=== PATIENT | male | born 1965 | race Caucasian/White ===

== ENCOUNTER 2019-05-29 10:28 | Observation (INO) | payer BC ==
[2019-05-29] MEDS ORDERED: Sodium Chloride 0.9% 1,000 ML IV ONE ×3 (10:31→14:30)
[2019-05-29] MEDS ORDERED: Ondansetron 4 MG/2 ML SDV IVPUSH ONE (10:33)
[2019-05-29 11:18] LABS: CHLORIDE,CL 100 mmol/L (98-107); SODIUM,NA 137 mmol/L (136-145)
[2019-05-29] MEDS ORDERED: Pantoprazole 40 MG in Sodium Chloride 0.9% 100 ML IV ONE (12:16)
[2019-05-29] MEDS ORDERED: Ondansetron 4 MG/2 ML SDV IVPUSH PRN (12:16)
[2019-05-29] MEDS ORDERED: Acetaminophen 325 MG Tab PO PRN (12:16)
[2019-05-29] MEDS ORDERED: Potassium Chloride 20 MEQ Tab.ER PO ONE ×3 (12:20→18:00)
[2019-05-29] MEDS ORDERED: Ketorolac 30 MG/ML SDV IVPUSH PRN (12:25)
[2019-05-29] MEDS ORDERED: Pantoprazole 40 MG in Sodium Chloride 0.9% 100 ML IVPUSH ONE (12:28)
--- NOTE | 2019-05-29 12:31 | EDM.PDOC ---
ED HPI GENERAL MEDICAL PROBLEM - General Chief Complaint: General Stated Complaint: nausea/vomiting, sinus congestion Time Seen by Provider: 05/29/19 11:00 Source of Information: Reports: Patient History Limitations: Reports: No Limitations - History of Present Illness INITIAL COMMENTS - FREE TEXT/NARRATIVE: Patient comes to ER with multiple complaints, including headache/body aches/ cough and congestion/emesis that has been present for 4 days. No specific fevers. Feels weaker overall. Exposed to sick coworkers at [employer]. headache Pain Score (Numeric/FACES): 8 - Related Data Allergies Allergy/AdvReac Type Severity Reaction Status Date / Time No Known Allergies Allergy Verified 05/29/19 11:02 Home Meds: Home Meds diphenhydrAMINE [Benadryl] 2 cap PO Q4HR PRN 05/29/19 [History] Past Medical History HEENT History: Reports: Other (See Below) Other HEENT History: seasonal allergies. wears glasses Other Musculoskeletal History: right wrist surgery Social & Family History - Tobacco Use Smoking Status *Q: Former Smoker Used Tobacco, but Quit: Yes Month/Year Tobacco Last Used: quit in 1996 - Caffeine Use Caffeine Use: Reports: None - Alcohol Use Alcohol Use History: No - Recreational Drug Use Recreational Drug Use: No Drug Use in Last 12 Months: No - Living Situation & Occupation Living situation: Reports: Single, Alone Occupation: Employed ED ROS GENERAL - Review of Systems Review Of Systems: See Below Constitutional: Reports: Chills, Malaise, Weakness, Fatigue, Decreased Appetite. Denies: Night Sweats, Diaphoresis HEENT: Reports: Ear Pain, Rhinitis, Sinus Problem. Denies: Dental Pain, Eye Discharge, Eye Pain, Hearing Loss, Throat Pain, Throat Swelling, Vertigo, Vision Change Respiratory: Reports: Cough, Sputum. Denies: Shortness of Breath, Wheezing, Pleuritic Chest Pain, Hemoptysis Cardiovascular: Reports: No Symptoms GI/Abdominal: Reports: Decreased Appetite, Nausea, Vomiting. Denies: Abdominal Pain, Constipation, Diarrhea, Difficulty Swallowing, Distension, Hematemesis, Hematochezia : Reports: No Symptoms Musculoskeletal: Reports: Other (diffuse body aches) Skin: Reports: No Symptoms Neurological: Reports: Headache. Denies: Confusion, Dizziness, Numbness, Paresthesia, Seizure, Syncope, Trouble Speaking, Difficulty Walking, Weakness, Change in Speech, Gait Disturbance Psychiatric: Reports: No Symptoms Hematologic/Lymphatic: Reports: No Symptoms Immunologic: Reports: No Symptoms ED EXAM, GENERAL - Physical Exam Exam: See Below Exam Limited By: No Limitations General Appearance: Alert, WD/WN, No Apparent Distress Eye Exam: Bilateral Eye: EOMI, PERRL Ears: Normal External Exam, Normal Canal, Hearing Grossly Normal, Normal TMs Nose: Normal Inspection Throat/Mouth: Normal Gums, Normal Oropharynx, Normal Voice, No Airway Compromise Head: Atraumatic, Normocephalic Neck: Normal Inspection, Supple, Non-Tender, Full Range of Motion. No: Lymphadenopathy (L), Lymphadenopathy (R) Respiratory/Chest: No Respiratory Distress, Lungs Clear, Normal Breath Sounds, No Accessory Muscle Use, Chest Non-Tender Cardiovascular: No Murmur, Tachycardia Peripheral Pulses: 2+: Radial (L), Radial (R) GI/Abdominal: Soft, Non-Tender, No Distention, Abnormal Bowel Sounds (decreased throughout) (Male) Exam: Deferred Rectal (Males) Exam: Deferred Back Exam: Normal Inspection Extremities: Normal Range of Motion, Non-Tender, No Pedal Edema, Slow Capillary Refill (4-5 seconds on upper arm) Neurological: Alert, Oriented, Normal Cognition, Normal Gait, No Motor/Sensory Deficits Psychiatric: Normal Affect, Normal Mood Skin Exam: Warm, Dry, Intact, Pallor Course - Vital Signs Last Recorded V/S: Last Vital Signs Temp 37.2 C 05/29/19 10:36 Pulse 96 05/29/19 10:59 Resp 20 05/29/19 10:59 BP 131/84 05/29/19 10:59 Pulse Ox 100 05/29/19 10:59 - Orders/Labs/Meds Orders: Active Orders 24 hr Category Date Time Status Patient Status [ADT] Routine ADT 05/29/19 12:16 Active Antiembolic Devices [RC] PER UNIT ROUTINE Care 05/29/19 12:18 Active Intake and Output [RC] QSHIFT Care 05/29/19 12:18 Active May Shower [RC] ASDIRECTED Care 05/29/19 12:16 Active Oxygen Therapy [RC] PRN Care 05/29/19 12:16 Active Up ad Aleixa [RC] ASDIRECTED Care 05/29/19 12:16 Active VTE/DVT Education [RC] PER UNIT ROUTINE Care 05/29/19 12:16 Active Vital Signs [RC] Q6HR Care 05/29/19 12:16 Active Full Liquid Diet [DIET] Diet 05/29/19 Lunch Active Chest 2V [CR] Stat Exams 05/29/19 10:33 Taken CBC WITH AUTO DIFF [HEME] AM Lab 05/30/19 05:15 Ordered COMPREHENSIVE METABOLIC PN,CMP [CHEM] AM Lab 05/30/19 05:11 Ordered MAGNESIUM [CHEM] AM Lab 05/30/19 05:11 Ordered UA W/MICROSCOPIC [URIN] Stat Lab 05/29/19 10:31 Ordered Acetaminophen [Tylenol] Med 05/29/19 12:16 Ordered 650 mg PO Q4H PRN Ketorolac [Toradol] Med 05/29/19 12:25 Ordered 30 mg IVPUSH Q6H PRN Magnesium Sulfate/D5W [Magnesium Sulfate in D5W 100 Med 05/29/19 13:30 Ordered Premix] 1 gm Premix Bag 1 bag IV ONETIME Magnesium Sulfate/D5W [Magnesium Sulfate in D5W 100 Med 05/29/19 20:00 Ordered Premix] 1 gm Premix Bag 1 bag IV ONETIME Ondansetron [Zofran] Med 05/29/19 12:16 Ordered 4 mg IVPUSH Q6H PRN Pantoprazole [ProTONIX IV] 40 mg Med 05/29/19 12:16 Ordered Sodium Chloride 0.9% [Normal Saline] 100 ml IV ONETIME Potassium Chloride [Klor-Con M20] Med 05/29/19 18:00 Once 20 meq PO ONETIME ONE Potassium Chloride [Klor-Con M20] Med 05/29/19 12:20 Once 40 meq PO ONETIME ONE Potassium Chloride [Klor-Con M20] Med 05/29/19 15:00 Once 40 meq PO ONETIME ONE Sodium Chloride 0.9% [Normal Saline] 1,000 ml Med 05/29/19 12:19 Ordered IV .BOLUS Sodium Chloride 0.9% [Normal Saline] 1,000 ml Med 05/29/19 14:30 Ordered IV .BOLUS Sodium Chloride 0.9% [Normal Saline] 1,000 ml Med 05/29/19 18:30 Ordered IV ASDIRECTED Sodium Chloride 0.9% [Saline Flush] Med 05/29/19 10:31 Active 10 ml FLUSH ASDIRECTED PRN Antiembolic Hose [OM.PC] Per Unit Routine Oth 05/29/19 12:18 Ordered Saline Lock Insert [OM.PC] Routine Oth 05/29/19 10:31 Ordered Resuscitation Status Routine Resus Stat 05/29/19 12:16 Ordered Medication Orders Acetaminophen (Tylenol) 650 mg PO Q4H PRN PRN Reason: Pain (Mild 1-3)/fever Pantoprazole Sodium 40 mg/ (Sodium Chloride) 100 mls @ 200 mls/hr IV ONETIME ONE Stop: 05/29/19 12:45 Sodium Chloride (Normal Saline) 1,000 mls @ 999 mls/hr IV .BOLUS ONE Stop: 05/29/19 13:19 Magnesium Sulfate/Dextrose 1 (gm/ Premix) 100 mls @ 100 mls/hr IV ONETIME ONE Stop: 05/29/19 14:29 Magnesium Sulfate/Dextrose 1 (gm/ Premix) 100 mls @ 100 mls/hr IV ONETIME ONE Stop: 05/29/19 20:59 Sodium Chloride (Normal Saline) 1,000 mls @ 250 mls/hr IV .BOLUS ONE Stop: 05/29/19 18:29 Sodium Chloride (Normal Saline) 1,000 mls @ 150 mls/hr IV ASDIRECTED KIM Ketorolac Tromethamine (Toradol) 30 mg IVPUSH Q6H PRN PRN Reason: Pain Stop: 06/03/19 12:26 Ondansetron HCl (Zofran) 4 mg IVPUSH Q6H PRN PRN Reason: Nausea/Vomiting Potassium Chloride (Klor-Con M20) 40 meq PO ONETIME ONE Stop: 05/29/19 12:21 Potassium Chloride (Klor-Con M20) 40 meq PO ONETIME ONE Stop: 05/29/19 15:01 Potassium Chloride (Klor-Con M20) 20 meq PO ONETIME ONE Stop: 05/29/19 18:01 Sodium Chloride (Saline Flush) 10 ml FLUSH ASDIRECTED PRN PRN Reason: Keep Vein Open Labs: Laboratory Tests 05/29/19 05/29/19 05/29/19 Range/Units 10:45 10:45 10:45 WBC 3.5 L (4.0-10.2) K/uL RBC 4.98 (4.33-5.41) M/uL Hgb 15.7 (13.1-16.8) g/dL Hct 44.9 (39.0-49.0) % MCV 90.2 (84.0-98.0) fL MCH 31.5 (28.2-33.3) pg MCHC 35.0 (31.7-36.0) g/dL RDW 12.8 (11.2-14.1) % Plt Count 110 L (150-350) K/uL Neut % (Auto) 70.8 (45.0-80.0) % Lymph % (Auto) 17.2 (10.0-50.0) % Hubbard % (Auto) 11.7 (2.0-14.0) % Eos % (Auto) 0.0 (0.0-5.0) % Baso % (Auto) 0.3 (0.0-2.0) % Neut # (Auto) 2.47 (1.40-7.00) K/uL Lymph # (Auto) 0.60 (0.50-3.50) K/uL [place] # (Auto) 0.41 (0.00-1.00) K/uL Eos # (Auto) 0.00 (0.00-0.50) K/uL Baso # (Auto) 0.01 (0.00-0.20) K/uL Sodium 137 (136-145) mmol/L Potassium 3.1 L (3.5-5.1) mmol/L Chloride 100 (98-107) mmol/L Carbon Dioxide 23.2 (21.0-32.0) mmol/L BUN 15 (7-18) mg/dL Creatinine 0.88 (0.51-1.17) mg/dL Est Cr Clr Drug Dosing 106.55 mL/min Estimated GFR (MDRD) > 60 mL/min Glucose 154 H (74-106) mg/dL Lactic Acid 1.5 (0.4-2.0) mmol/L Calcium 8.3 L (8.5-10.1) mg/dL Magnesium 1.7 L (1.8-2.4) mg/dL Total Bilirubin 0.9 (0.2-1.0) mg/dL AST 40 H (15-37) U/L ALT 75 (12-78) U/L Alkaline Phosphatase 69 (46-116) IU/L Total Protein 7.0 (6.4-8.2) g/dL Albumin 3.9 (3.4-5.0) g/dL Meds: Medications Generic Name Dose Route Start Last Admin Trade Name Freq PRN Reason Stop Dose Admin Acetaminophen 650 mg 05/29/19 12:16 Tylenol PO Q4H PRN Pain (Mild 1-3)/fever Pantoprazole Sodium 40 mg/ 100 mls @ 200 mls/hr 05/29/19 12:16 Sodium Chloride IV 05/29/19 12:45 ONETIME ONE Sodium Chloride 1,000 mls @ 999 mls/hr 05/29/19 12:19 Normal Saline IV 05/29/19 13:19 .BOLUS ONE Magnesium Sulfate/Dextrose 1 100 mls @ 100 mls/hr 05/29/19 13:30 gm/ Premix IV 05/29/19 14:29 ONETIME ONE Magnesium Sulfate/Dextrose 1 100 mls @ 100 mls/hr 05/29/19 20:00 gm/ Premix IV 05/29/19 20:59 ONETIME ONE Sodium Chloride 1,000 mls @ 250 mls/hr 05/29/19 14:30 Normal Saline IV 05/29/19 18:29 .BOLUS ONE Sodium Chloride 1,000 mls @ 150 mls/hr 05/29/19 18:30 Normal Saline IV ASDIRECTED KIM Ketorolac Tromethamine 30 mg 05/29/19 12:25 Toradol IVPUSH 06/03/19 12:26 Q6H PRN Pain Ondansetron HCl 4 mg 05/29/19 12:16 Zofran IVPUSH Q6H PRN Nausea/Vomiting Potassium Chloride 40 meq 05/29/19 12:20 Klor-Con M20 PO 05/29/19 12:21 ONETIME ONE Potassium Chloride 40 meq 05/29/19 15:00 Klor-Con M20 PO 05/29/19 15:01 ONETIME ONE Potassium Chloride 20 meq 05/29/19 18:00 Klor-Con M20 PO 05/29/19 18:01 ONETIME ONE Sodium Chloride 10 ml 05/29/19 10:31 Saline Flush FLUSH ASDIRECTED PRN Keep Vein Open Discontinued Medications Generic Name Dose Route Start Last Admin Trade Name Solitario PRN Reason Stop Dose Admin Sodium Chloride 1,000 mls @ 999 mls/hr 05/29/19 10:31 05/29/19 10:58 Normal Saline IV 05/29/19 11:31 999 mls/hr .BOLUS ONE Administration Ondansetron HCl 4 mg 05/29/19 10:33 05/29/19 10:57 Zofran IVPUSH 05/29/19 10:34 4 mg ONETIME ONE Administration - Re-Assessments/Exams Free Text/Narrative Re-Assessment/Exam: Influenza B positive. Delayed cap refill, low Mg/K. Admit for rehydration and correction of potassium and Mg. Departure - Departure Time of Disposition: 12:00 Disposition: Refer to Observation Clinical Impression: Influenza B, Dehydration, Hypokalemia, Hypomagnesemia - Discharge Information *PRESCRIPTION DRUG MONITORING PROGRAM REVIEWED*: Not Applicable *COPY OF PRESCRIPTION DRUG MONITORING REPORT IN PATIENT DONA: Not Applicable Referrals: PCP,None [Primary Care Provider] - Forms: ED Department Discharge Sepsis Event Note - Evaluation Sepsis Screening Result: No Definite Risk - Focused Exam Vital Signs: Vital Signs Temp Pulse Resp BP Pulse Ox 05/29/19 10:59 96 20 131/84 100 05/29/19 10:52 96 20 145/85 H 98 05/29/19 10:36 37.2 C 95 20 138/83 97 05/29/19 10:31 37.2 C 100 20 156/82 H 100 Date Exam was Performed: 05/29/19 Time Exam was Performed: 12:26 - Problem List & Annotations (1) Influenza B SNOMED Code(s): 56586587 Code(s): J10.1 - FLU DUE TO OTH IDENT INFLUENZA VIRUS W OTH RESP MANIFEST Status: Acute Priority: High Current Visit: Yes Annotation/Comment:: Influenza B positive. (2) Dehydration SNOMED Code(s): 86540863 Code(s): E86.0 - DEHYDRATION Status: Acute Priority: High Current Visit : Yes Annotation/Comment:: Delayed cap refill/significant dehydration by exam. Admit for IV fluids/nausea control (3) Hypokalemia SNOMED Code(s): 90795886 Code(s): E87.6 - HYPOKALEMIA Status: Acute Priority: Medium Current Visit: Yes Annotation/Comment:: Oral K ordered. Recheck level in AM (4) Hypomagnesemia SNOMED Code(s): 294465959 Code(s): E83.42 - HYPOMAGNESEMIA Status: Acute Priority: Medium Current Visit: Yes Annotation/Comment:: IV supplementation ordered. Recheck level in AM. (5) Osteoarthritis SNOMED Code(s): 829973637 Code(s): M19.90 - UNSPECIFIED OSTEOARTHRITIS, UNSPECIFIED SITE Status: Chronic Priority: Low Current Visit: No Annotation/Comment:: Stable by history Qualifiers: Osteoarthritis location: spine Spinal region: lumbar Spinal osteoarthritis complication: unspecified spinal osteoarthritis Qualified Code( s): M47.816 - Spondylosis without myelopathy or radiculopathy, lumbar region (6) Peptic reflux disease SNOMED Code(s): 133233585 Code(s): K21.9 - GASTRO-ESOPHAGEAL REFLUX DISEASE WITHOUT ESOPHAGITIS Status: Chronic Priority: Low Current Visit: No Annotation/Comment:: Not currently requiring medical therapy (7) Mixed anxiety depressive disorder SNOMED Code(s): 595294961 Code(s): F41.8 - OTHER SPECIFIED ANXIETY DISORDERS Status: Chronic Priority: Medium Current Visit: No Annotation/Comment:: Stable by patient history with no apparent medical therapy required currently or in the past - Problem List Review Problem List Initiated/Reviewed/Updated: Yes - My Orders Last 24 Hours: My Active Orders 05/29/19 10:31 UA W/MICROSCOPIC [URIN] Stat Sodium Chloride 0.9% [Saline Flush] 10 ml FLUSH ASDIRECTED PRN Saline Lock Insert [OM.PC] Routine 05/29/19 10:33 Chest 2V [CR] Stat 05/29/19 12:16 Patient Status [ADT] Routine May Shower [RC] ASDIRECTED Oxygen Therapy [RC] PRN Up ad Alexia [RC] ASDIRECTED VTE/DVT Education [RC] PER UNIT ROUTINE Vital Signs [RC] Q6HR Acetaminophen [Tylenol] 650 mg PO Q4H PRN Ondansetron [Zofran] 4 mg IVPUSH Q6H PRN Pantoprazole [ProTONIX IV] 40 mg Sodium Chloride 0.9% [Normal Saline] 100 ml IV ONETIME Resuscitation Status Routine 05/29/19 12:18 Antiembolic Devices [RC] PER UNIT ROUTINE Intake and Output [RC] QSHIFT Antiembolic Hose [OM.PC] Per Unit Routine 05/29/19 12:19 Sodium Chloride 0.9% [Normal Saline] 1,000 ml IV .BOLUS 05/29/19 12:20 Potassium Chloride [Klor-Con M20] 40 meq PO ONETIME ONE 05/29/19 12:25 Ketorolac [Toradol] 30 mg IVPUSH Q6H PRN 05/29/19 13:30 Magnesium Sulfate/D5W [Magnesium Sulfate in D5W 100 Premix] 1 gm Premix Bag 1 bag IV ONETIME 05/29/19 14:30 Sodium Chloride 0.9% [Normal Saline] 1,000 ml IV .BOLUS 05/29/19 15:00 Potassium Chloride [Klor-Con M20] 40 meq PO ONETIME ONE 05/29/19 18:00 Potassium Chloride [Klor-Con M20] 20 meq PO ONETIME ONE 05/29/19 18:30 Sodium Chloride 0.9% [Normal Saline] 1,000 ml IV ASDIRECTED 05/29/19 20:00 Magnesium Sulfate/D5W [Magnesium Sulfate in D5W 100 Premix] 1 gm Premix Bag 1 bag IV ONETIME 05/29/19 Lunch Full Liquid Diet [DIET] 05/30/19 05:11 COMPREHENSIVE METABOLIC PN,CMP [CHEM] AM MAGNESIUM [CHEM] AM 05/30/19 05:15 CBC WITH AUTO DIFF [HEME] AM - Assessment/Plan Admission H&P: Please use this note as an admission H&P Last 24 Hours: My Active Orders 05/29/19 10:31 UA W/MICROSCOPIC [URIN] Stat Sodium Chloride 0.9% [Saline Flush] 10 ml FLUSH ASDIRECTED PRN Saline Lock Insert [OM.PC] Routine 05/29/19 10:33 Chest 2V [CR] Stat 05/29/19 12:16 Patient Status [ADT] Routine May Shower [RC] ASDIRECTED Oxygen Therapy [RC] PRN Up ad Alexia [RC] ASDIRECTED VTE/DVT Education [RC] PER UNIT ROUTINE Vital Signs [RC] Q6HR Acetaminophen [Tylenol] 650 mg PO Q4H PRN Ondansetron [Zofran] 4 mg IVPUSH Q6H PRN Pantoprazole [ProTONIX IV] 40 mg Sodium Chloride 0.9% [Normal Saline] 100 ml IV ONETIME Resuscitation Status Routine 05/29/19 12:18 Antiembolic Devices [RC] PER UNIT ROUTINE Intake and Output [RC] QSHIFT Antiembolic Hose [OM.PC] Per Unit Routine 05/29/19 12:19 Sodium Chloride 0.9% [Normal Saline] 1,000 ml IV .BOLUS 05/29/19 12:20 Potassium Chloride [Klor-Con M20] 40 meq PO ONETIME ONE 05/29/19 12:25 Ketorolac [Toradol] 30 mg IVPUSH Q6H PRN 05/29/19 13:30 Magnesium Sulfate/D5W [Magnesium Sulfate in D5W 100 Premix] 1 gm Premix Bag 1 bag IV ONETIME 05/29/19 14:30 Sodium Chloride 0.9% [Normal Saline] 1,000 ml IV .BOLUS 05/29/19 15:00 Potassium Chloride [Klor-Con M20] 40 meq PO ONETIME ONE 05/29/19 18:00 Potassium Chloride [Klor-Con M20] 20 meq PO ONETIME ONE 05/29/19 18:30 Sodium Chloride 0.9% [Normal Saline] 1,000 ml IV ASDIRECTED 05/29/19 20:00 Magnesium Sulfate/D5W [Magnesium Sulfate in D5W 100 Premix] 1 gm Premix Bag 1 bag IV ONETIME 05/29/19 Lunch Full Liquid Diet [DIET] 05/30/19 05:11 COMPREHENSIVE METABOLIC PN,CMP [CHEM] AM MAGNESIUM [CHEM] AM 05/30/19 05:15 CBC WITH AUTO DIFF [HEME] AM Assessment:: as above Plan: as above. to assume care of patient this evening. Anticipate 24-48 hour stay depending on response to fluids and anti-emetics.
[2019-05-29] MEDS ORDERED: Pantoprazole 40 MG Vial IVPUSH ONE ×2 (12:32→12:45)
[2019-05-29] MEDS: Sodium Chloride 0.9% 1,000 ML IV SCH (18:32)
[2019-05-29] MEDS: Sodium Chloride 0.9% 10 ML Syringe FLUSH PRN (20:09)
[2019-05-30] MEDS: Sodium Chloride 0.9% 1,000 ML IV SCH ×2 (02:21→09:28)
[2019-05-30 07:33] LABS: CHLORIDE,CL 107 mmol/L (98-107); SODIUM,NA 141 mmol/L (136-145)
--- NOTE | 2019-05-30 10:21 | PCM.PN ---
- General Info Date of Service: 05/30/19 Admission Dx/Problem (Free Text): Pt admitted with Influenza and dehydration Functional Status: Reports: Pain Controlled - Review of Systems General: Reports: Weakness, Fatigue Pulmonary: Reports: Shortness of Breath Cardiovascular: Reports: No Symptoms Gastrointestinal: Reports: No Symptoms - Patient Data Vitals - Most Recent: Last Vital Signs Temp 97.7 F 05/30/19 08:00 Pulse 72 05/30/19 08:00 Resp 18 05/30/19 08:00 BP 132/76 05/30/19 08:00 Pulse Ox 99 05/30/19 08:00 Weight - Most Recent: 199 lb I&O - Last 24 Hours: Intake & Output 05/29/19 05/30/19 05/30/19 18:59 02:59 10:59 Intake Total 3140 1135 2364 Output Total 5125 111 3101 Balance 1740 435 114 Lab Results Last 24 Hours: Laboratory Results - last 24 hr 05/29/19 05/29/19 05/29/19 Range/Units 10:45 10:45 10:45 WBC 3.5 L (4.0-10.2) K/uL RBC 4.98 (4.33-5.41) M/uL Hgb 15.7 (13.1-16.8) g/dL Hct 44.9 (39.0-49.0) % MCV 90.2 (84.0-98.0) fL MCH 31.5 (28.2-33.3) pg MCHC 35.0 (31.7-36.0) g/dL RDW 12.8 (11.2-14.1) % Plt Count 110 L (150-350) K/uL Neut % (Auto) 70.8 (45.0-80.0) % Lymph % (Auto) 17.2 (10.0-50.0) % [place] % (Auto) 11.7 (2.0-14.0) % Eos % (Auto) 0.0 (0.0-5.0) % Baso % (Auto) 0.3 (0.0-2.0) % Neut # (Auto) 2.47 (1.40-7.00) K/uL Lymph # (Auto) 0.60 (0.50-3.50) K/uL Winston # (Auto) 0.41 (0.00-1.00) K/uL Eos # (Auto) 0.00 (0.00-0.50) K/uL Baso # (Auto) 0.01 (0.00-0.20) K/uL Sodium 137 (136-145) mmol/L Potassium 3.1 L (3.5-5.1) mmol/L Chloride 100 (98-107) mmol/L Carbon Dioxide 23.2 (21.0-32.0) mmol/L BUN 15 (7-18) mg/dL Creatinine 0.88 (0.51-1.17) mg/dL Est Cr Clr Drug Dosing 106.55 mL/min Estimated GFR (MDRD) > 60 mL/min Glucose 154 H (74-106) mg/dL Lactic Acid 1.5 (0.4-2.0) mmol/L Calcium 8.3 L (8.5-10.1) mg/dL Magnesium 1.7 L (1.8-2.4) mg/dL Total Bilirubin 0.9 (0.2-1.0) mg/dL AST 40 H (15-37) U/L ALT 75 (12-78) U/L Alkaline Phosphatase 69 (46-116) IU/L Total Protein 7.0 (6.4-8.2) g/dL Albumin 3.9 (3.4-5.0) g/dL Specimen Type Urine Color Urine Appearance Urine pH (5.0-9.0) Ur Specific [place] (1.005-1.030) Urine Protein (NEGATIVE) mg/dL Urine Glucose (UA) (NEGATIVE) mg/dL Urine Ketones (NEGATIVE) mg/dL Urine Occult Blood (NEGATIVE) Urine Nitrite (NEGATIVE) Urine Bilirubin (NEGATIVE) Urine Urobilinogen (0.2-1.0) E.U./dL Ur Leukocyte Esterase (NEGATIVE) Urine RBC /HPF Urine WBC /HPF Amorphous Sediment (0/HPF) /HPF Urine Bacteria (NONE TO FEW) /HPF 05/29/19 05/30/19 05/30/19 Range/Units 12:50 07:11 07:11 WBC 2.9 L (4.0-10.2) K/uL RBC 4.61 (4.33-5.41) M/uL Hgb 14.6 (13.1-16.8) g/dL Hct 43.0 (39.0-49.0) % MCV 93.3 D (84.0-98.0) fL MCH 31.7 (28.2-33.3) pg MCHC 34.0 (31.7-36.0) g/dL RDW 13.0 (11.2-14.1) % Plt Count 105 L (150-350) K/uL Neut % (Auto) 52.5 (45.0-80.0) % Lymph % (Auto) 32.3 (10.0-50.0) % Winston % (Auto) 14.4 H (2.0-14.0) % Eos % (Auto) 0.4 (0.0-5.0) % Baso % (Auto) 0.4 (0.0-2.0) % Neut # (Auto) 1.50 (1.40-7.00) K/uL Lymph # (Auto) 0.92 (0.50-3.50) K/uL Winston # (Auto) 0.41 (0.00-1.00) K/uL Eos # (Auto) 0.01 (0.00-0.50) K/uL Baso # (Auto) 0.01 (0.00-0.20) K/uL Sodium 141 (136-145) mmol/L Potassium 4.5 (3.5-5.1) mmol/L Chloride 107 (98-107) mmol/L Carbon Dioxide 25.1 (21.0-32.0) mmol/L BUN 8 (7-18) mg/dL Creatinine 0.80 (0.51-1.17) mg/dL Est Cr Clr Drug Dosing 117.21 mL/min Estimated GFR (MDRD) > 60 mL/min Glucose 97 (74-106) mg/dL Lactic Acid (0.4-2.0) mmol/L Calcium 8.0 L (8.5-10.1) mg/dL Magnesium 2.2 (1.8-2.4) mg/dL Total Bilirubin 0.4 (0.2-1.0) mg/dL AST 32 (15-37) U/L ALT 59 (12-78) U/L Alkaline Phosphatase 60 (46-116) IU/L Total Protein 6.1 L (6.4-8.2) g/dL Albumin 3.3 L (3.4-5.0) g/dL Specimen Type Urinvoid Urine Color Yellow Urine Appearance Cloudy Urine pH 5.5 (5.0-9.0) Ur Specific [place] 1.020 (1.005-1.030) Urine Protein Negative (NEGATIVE) mg/dL Urine Glucose (UA) Negative (NEGATIVE) mg/dL Urine Ketones 15 H (NEGATIVE) mg/dL Urine Occult Blood Negative (NEGATIVE) Urine Nitrite Negative (NEGATIVE) Urine Bilirubin Negative (NEGATIVE) Urine Urobilinogen 0.2 (0.2-1.0) E.U./dL Ur Leukocyte Esterase Negative (NEGATIVE) Urine RBC Not seen /HPF Urine WBC Not seen /HPF Amorphous Sediment Many H (0/HPF) /HPF Urine Bacteria Not seen (NONE TO FEW) /HPF [place] Results Last 24 Hours: Microbiology 05/29/19 10:40 Influenza Type A Antigen Screen - Final Nasal, Right NEGATIVE INFLUENZA A VIRUS AG REFERENCE RANGE: NEGATIVE Influenza Type B Antigen Screen - Final Positive Influenza B Ag Med Orders - Current: Current Medications Acetaminophen (Tylenol) 650 mg PO Q4H PRN PRN Reason: Pain (Mild 1-3)/fever Ketorolac Tromethamine (Toradol) 30 mg IVPUSH Q6H PRN PRN Reason: Pain Stop: 06/03/19 12:26 Last Admin: 05/29/19 20:07 Dose: 30 mg Ondansetron HCl (Zofran) 4 mg IVPUSH Q6H PRN PRN Reason: Nausea/Vomiting Last Admin: 05/29/19 20:07 Dose: 4 mg Sodium Chloride (Saline Flush) 10 ml FLUSH ASDIRECTED PRN PRN Reason: Keep Vein Open Last Admin: 05/29/19 20:09 Dose: 10 ml Discontinued Medications Sodium Chloride (Normal Saline) 1,000 mls @ 999 mls/hr IV .BOLUS ONE Stop: 05/29/19 11:31 Last Admin: 05/29/19 10:58 Dose: 999 mls/hr Pantoprazole Sodium 40 mg/ (Sodium Chloride) 100 mls @ 200 mls/hr IV ONETIME ONE Stop: 05/29/19 12:45 Last Admin: 05/29/19 12:31 Dose: Not Given Sodium Chloride (Normal Saline) 1,000 mls @ 999 mls/hr IV .BOLUS ONE Stop: 05/29/19 13:19 Last Admin: 05/29/19 12:19 Dose: 999 mls/hr Magnesium Sulfate/Dextrose 1 (gm/ Premix) 100 mls @ 100 mls/hr IV ONETIME ONE Stop: 05/29/19 14:29 Last Admin: 05/29/19 13:52 Dose: 100 mls/hr Magnesium Sulfate/Dextrose 1 (gm/ Premix) 100 mls @ 100 mls/hr IV ONETIME ONE Stop: 05/29/19 20:59 Last Admin: 05/29/19 19:46 Dose: 100 mls/hr Sodium Chloride (Normal Saline) 1,000 mls @ 250 mls/hr IV .BOLUS ONE Stop: 05/29/19 18:29 Last Admin: 05/29/19 15:04 Dose: 250 mls/hr Sodium Chloride (Normal Saline) 1,000 mls @ 150 mls/hr IV ASDIRECTED [facility] Last Admin: 05/30/19 09:28 Dose: 150 mls/hr Pantoprazole Sodium 40 mg/ (Sodium Chloride) 100 mls @ 200 mls/hr IVPUSH ONETIME ONE Stop: 05/29/19 12:45 Last Admin: 05/29/19 12:36 Dose: Not Given Ondansetron HCl (Zofran) 4 mg IVPUSH ONETIME ONE Stop: 05/29/19 10:34 Last Admin: 05/29/19 10:57 Dose: 4 mg Pantoprazole Sodium (Protonix Iv) 40 mg IVPUSH ONETIME ONE Stop: 05/29/19 12:33 Last Admin: 05/29/19 12:46 Dose: 40 mg Potassium Chloride (Klor-Con M20) 40 meq PO ONETIME ONE Stop: 05/29/19 12:21 Last Admin: 05/29/19 12:46 Dose: 40 meq Potassium Chloride (Klor-Con M20) 40 meq PO ONETIME ONE Stop: 05/29/19 15:01 Last Admin: 05/29/19 15:04 Dose: 40 meq Potassium Chloride (Klor-Con M20) 20 meq PO ONETIME ONE Stop: 05/29/19 18:01 Last Admin: 05/29/19 17:37 Dose: 20 meq - Exam HEENT: Mucous Membr. Moist/Micro Neck: Supple Lungs: Decreased Breath Sounds Cardiovascular: Regular Rate GI/Abdominal Exam: Non-Tender Sepsis Event Note - Evaluation Sepsis Screening Result: No Definite Risk - Focused Exam Vital Signs: Vital Signs Temp Pulse Resp BP Pulse Ox 05/30/19 08:00 97.7 F 72 18 132/76 99 05/30/19 02:00 98.4 F 77 16 99/62 98 Date Exam was Performed: 05/30/19 Time Exam was Performed: 10:19 - Problem List Review Problem List Initiated/Reviewed/Updated: Yes - My Orders Last 24 Hours: My Active Orders 05/30/19 Lunch Regular Diet [DIET] - Assessment Assessment:: Imp: Influenza - Plan Plan:: Plan: Advance diet as tolerated
[2019-05-30] MEDS: Albuterol/Ipratropium 3.0-0.5 MG/3 ML Neb Soln NEB PRN (19:15)
[2019-05-30] MEDS: diphenhydrAMINE 25 MG Cap PO PRN (19:28)
[2019-05-31] MEDS: diphenhydrAMINE 25 MG Cap PO PRN (06:10)
[2019-05-31] MEDS: Sodium Chloride 0.9% 10 ML Syringe FLUSH PRN (07:11)
[2019-05-31] MEDS: Albuterol/Ipratropium 3.0-0.5 MG/3 ML Neb Soln NEB PRN (07:11)
[2019-05-31 07:23] VITALS: BP 134/68; PULSE 84
--- NOTE | 2019-05-31 09:38 | PCM.DCSUM1 ---
Discharge Summary - Hospital Course Free Text/Narrative:: Pt admitted with influenza and dehydration Pt placed on IVF's and HHN Pt improved over several days Feels much better Less cough No fever Eating and drinking ok Diagnosis: Stroke: No - Discharge Data Discharge Date: 05/31/19 Discharge Disposition: Home, Self-Care 01 Condition: Good - Referral to Home Health Primary Care Physician: PCP None - Discharge Diagnosis/Problem(s) (1) Dehydration SNOMED Code(s): 16755465 ICD Code: E86.0 - DEHYDRATION Status: Acute Priority: High Current Visit: Yes Problem Details: Delayed cap refill/significant dehydration by exam. Admit for IV fluids/nausea control (2) Influenza B SNOMED Code(s): 95279311 ICD Code: J10.1 - FLU DUE TO OTH IDENT INFLUENZA VIRUS W OTH RESP MANIFEST Status: Acute Priority: High Current Visit: Yes Problem Details: Influenza B positive. - Patient Instructions Diet: Usual Diet as Tolerated Activity: As Tolerated Driving: May Drive Today Showering/Bathing: May Shower Notify Provider of: Fever - Discharge Plan *PRESCRIPTION DRUG MONITORING PROGRAM REVIEWED*: Not Applicable *COPY OF PRESCRIPTION DRUG MONITORING REPORT IN PATIENT DONA: Not Applicable Prescriptions/Med Rec: Albuterol [Ventolin HFA] 1 puff INH Q4H #1 puff Home Medications: Home Meds diphenhydrAMINE [Benadryl] 2 cap PO Q4HR PRN 05/29/19 [History] Albuterol [Ventolin HFA] 1 puff INH Q4H #1 puff 05/31/19 [Rx] Patient Handouts: Potassium chloride tablets, extended-release tablets or capsules, Ondansetron injection, Hypomagnesemia, Hypokalemia, Pantoprazole injection, Magnesium Sulfate injection, Dehydration, Adult, [id number], Influenza, Adult, [id number] Forms: ED Department Discharge Referrals: PCP,None [Primary Care Provider] - - Discharge Summary/Plan Comment DC Time >30 min.: No - Patient Data Vitals - Most Recent: Last Vital Signs Temp 98.1 F 05/31/19 07:22 Pulse 84 05/31/19 07:22 Resp 18 05/31/19 07:22 BP 134/68 05/31/19 07:22 Pulse Ox 96 05/31/19 07:22 Weight - Most Recent: 199 lb I&O - Last 24 hours: Intake & Output 05/30/19 05/31/19 05/31/19 18:59 02:59 10:59 Intake Total 1240 1000 Output Total 1500 200 Balance 1240 -1500 800 Med Orders - Current: Current Medications Acetaminophen (Tylenol) 650 mg PO Q4H PRN PRN Reason: Pain (Mild 1-3)/fever Last Admin: 05/30/19 19:13 Dose: 650 mg Albuterol/Ipratropium (Duoneb 3.0-0.5 Mg/3 Ml) 3 ml NEB Q4HRRT PRN PRN Reason: Shortness of Breath Last Admin: 05/31/19 07:11 Dose: 3 ml Diphenhydramine HCl (Benadryl) 50 mg PO Q8H PRN PRN Reason: Allergies Last Admin: 05/31/19 06:10 Dose: 50 mg Ketorolac Tromethamine (Toradol) 30 mg IVPUSH Q6H PRN PRN Reason: Pain Stop: 06/03/19 12:26 Last Admin: 05/29/19 20:07 Dose: 30 mg Ondansetron HCl (Zofran) 4 mg IVPUSH Q6H PRN PRN Reason: Nausea/Vomiting Last Admin: 05/29/19 20:07 Dose: 4 mg Sodium Chloride (Saline Flush) 10 ml FLUSH ASDIRECTED PRN PRN Reason: Keep Vein Open Last Admin: 05/31/19 07:11 Dose: 10 ml Discontinued Medications Sodium Chloride (Normal Saline) 1,000 mls @ 999 mls/hr IV .BOLUS ONE Stop: 05/29/19 11:31 Last Admin: 05/29/19 10:58 Dose: 999 mls/hr Pantoprazole Sodium 40 mg/ (Sodium Chloride) 100 mls @ 200 mls/hr IV ONETIME ONE Stop: 05/29/19 12:45 Last Admin: 05/29/19 12:31 Dose: Not Given Sodium Chloride (Normal Saline) 1,000 mls @ 999 mls/hr IV .BOLUS ONE Stop: 05/29/19 13:19 Last Admin: 05/29/19 12:19 Dose: 999 mls/hr Magnesium Sulfate/Dextrose 1 (gm/ Premix) 100 mls @ 100 mls/hr IV ONETIME ONE Stop: 05/29/19 14:29 Last Admin: 05/29/19 13:52 Dose: 100 mls/hr Magnesium Sulfate/Dextrose 1 (gm/ Premix) 100 mls @ 100 mls/hr IV ONETIME ONE Stop: 05/29/19 20:59 Last Admin: 05/29/19 19:46 Dose: 100 mls/hr Sodium Chloride (Normal Saline) 1,000 mls @ 250 mls/hr IV .BOLUS ONE Stop: 05/29/19 18:29 Last Admin: 05/29/19 15:04 Dose: 250 mls/hr Sodium Chloride (Normal Saline) 1,000 mls @ 150 mls/hr IV ASDIRECTED KIM Last Admin: 05/30/19 09:28 Dose: 150 mls/hr Pantoprazole Sodium 40 mg/ (Sodium Chloride) 100 mls @ 200 mls/hr IVPUSH ONETIME ONE Stop: 05/29/19 12:45 Last Admin: 05/29/19 12:36 Dose: Not Given Ondansetron HCl (Zofran) 4 mg IVPUSH ONETIME ONE Stop: 05/29/19 10:34 Last Admin: 05/29/19 10:57 Dose: 4 mg Pantoprazole Sodium (Protonix Iv) 40 mg IVPUSH ONETIME ONE Stop: 05/29/19 12:33 Last Admin: 05/29/19 12:46 Dose: 40 mg Potassium Chloride (Klor-Con M20) 40 meq PO ONETIME ONE Stop: 05/29/19 12:21 Last Admin: 05/29/19 12:46 Dose: 40 meq Potassium Chloride (Klor-Con M20) 40 meq PO ONETIME ONE Stop: 05/29/19 15:01 Last Admin: 05/29/19 15:04 Dose: 40 meq Potassium Chloride (Klor-Con M20) 20 meq PO ONETIME ONE Stop: 05/29/19 18:01 Last Admin: 05/29/19 17:37 Dose: 20 meq
== END 2019-05-31 10:15 | disposition home or self-care (01) ==
LOC: LL.ED 10:28 → SUPCPDRO 10:28 → UNDOADMOB 11:45 → LL.MS 11:45
PROVIDERS: ADMIT Emergency Medicine; ATTEND Family Medicine
DX: J10.1 Influenza due to other identified influenza virus with other respiratory manifestations (principal); E86.0 Dehydration; E87.6 Hypokalemia; E83.42 Hypomagnesemia; M47.816 Spondylosis without myelopathy or radiculopathy, lumbar region; K21.9 Gastro-esophageal reflux disease without esophagitis; F41.8 Other specified anxiety disorders; Z87.891 Personal history of nicotine dependence
CPT/HCPCS: 36415; 71046; 80053; 81001; 83605; 83735; 85025; 87804; 94640; 96361; 96365; 96366; 96374; 96375; 96376; 99285-25; A9270-GY; C9113; G0378; J1885; J2405; J3475; J7030; J7620-GY

== ENCOUNTER 2019-10-14 00:48 | Emergency (ER) | payer BC ==
[2019-10-14 01:40] LABS: CHLORIDE,CL 105 mmol/L (98-107); SODIUM,NA 141 mmol/L (136-145)
[2019-10-14 01:50] VITALS: BP 128/85; PULSE 60
--- NOTE | 2019-10-14 01:52 | EDM.PDOC ---
ED HPI GENERAL MEDICAL PROBLEM - General Chief Complaint: Chest Pain Stated Complaint: chest pain Time Seen by Provider: 10/14/19 01:15 Source of Information: Reports: Patient History Limitations: Reports: No Limitations - History of Present Illness INITIAL COMMENTS - FREE TEXT/NARRATIVE: Pt with chest pain since 1900 hrs tonight Has hx/o same in past Had stress test that was negative Symptoms currently resolved No cough No fever No SOB Onset: Today Duration: Hour(s):, Intermittent Location: Reports: Chest Quality: Reports: Ache Severity: Moderate Left Upper Chest Pain Score (Numeric/FACES): 5 - Related Data Allergies Allergy/AdvReac Type Severity Reaction Status Date / Time No Known Allergies Allergy Verified 05/29/19 11:02 Home Meds: Home Meds diphenhydrAMINE [Benadryl] 2 cap PO Q4HR PRN 05/29/19 [History] Albuterol [Ventolin HFA] 1 puff INH Q4H #1 puff 05/31/19 [Rx] Past Medical History HEENT History: Reports: Impaired Vision, Other (See Below) Other HEENT History: seasonal allergies. wears glasses Cardiovascular History: Reports: Other (See Below) Other Cardiovascular History: Cardiac stress test 2014 Other Musculoskeletal History: right wrist surgery Social & Family History - Tobacco Use Smoking Status *Q: Never Smoker Second Hand Smoke Exposure: No - Caffeine Use Caffeine Use: Reports: None - Living Situation & Occupation Living situation: Reports: Single, Alone Occupation: Employed ED ROS GENERAL - Review of Systems Review Of Systems: See Below Constitutional: Reports: No Symptoms Respiratory: Reports: No Symptoms Cardiovascular: Reports: Chest Pain GI/Abdominal: Reports: No Symptoms ED EXAM, GENERAL - Physical Exam Exam: See Below Exam Limited By: No Limitations General Appearance: Alert, WD/WN, No Apparent Distress Neck: Supple Respiratory/Chest: Lungs Clear Cardiovascular: Regular Rate, Rhythm, No Edema EKG INTERPRETATION Rhythm: NSR Course - Vital Signs Last Recorded V/S: Last Vital Signs Temp 97.4 F 10/14/19 00:49 Pulse 59 L 10/14/19 01:39 Resp 20 10/14/19 01:39 BP 121/80 10/14/19 01:39 Pulse Ox 95 10/14/19 01:39 - Orders/Labs/Meds Orders: Active Orders 24 hr Category Date Time Status EKG Documentation Completion [RC] ASDIRECTED Care 10/14/19 01:02 Active EKG 12 Lead [EK] Stat Ther 10/14/19 01:01 Ordered Labs: Laboratory Tests 10/14/19 10/14/19 Range/Units 01:15 01:15 WBC 5.1 (4.0-10.2) K/uL RBC 4.93 (4.33-5.41) M/uL Hgb 15.4 (13.1-16.8) g/dL Hct 44.9 (39.0-49.0) % MCV 91.1 (84.0-98.0) fL MCH 31.2 (28.2-33.3) pg MCHC 34.3 (31.7-36.0) g/dL RDW 12.8 (11.2-14.1) % Plt Count 129 L (150-350) K/uL Neut % (Auto) 53.6 (45.0-80.0) % Lymph % (Auto) 34.3 (10.0-50.0) % Mayes % (Auto) 9.2 (2.0-14.0) % Eos % (Auto) 2.3 (0.0-5.0) % Baso % (Auto) 0.6 (0.0-2.0) % Neut # (Auto) 2.75 (1.40-7.00) K/uL Lymph # (Auto) 1.76 (0.50-3.50) K/uL Mayes # (Auto) 0.47 (0.00-1.00) K/uL Eos # (Auto) 0.12 (0.00-0.50) K/uL Baso # (Auto) 0.03 (0.00-0.20) K/uL Sodium 141 (136-145) mmol/L Potassium 3.1 L (3.5-5.1) mmol/L Chloride 105 (98-107) mmol/L Carbon Dioxide 26.8 (21.0-32.0) mmol/L BUN 13 (7-18) mg/dL Creatinine 0.73 (0.51-1.17) mg/dL Est Cr Clr Drug Dosing 128.45 mL/min Estimated GFR (MDRD) > 60 mL/min Glucose 109 H (74-106) mg/dL Calcium 8.6 (8.5-10.1) mg/dL Total Bilirubin 0.7 (0.2-1.0) mg/dL AST 22 (15-37) U/L ALT 32 (12-78) U/L Alkaline Phosphatase 73 (46-116) IU/L Troponin I 0.000 (0.000-0.056) ng/mL Total Protein 6.6 (6.4-8.2) g/dL Albumin 3.8 (3.4-5.0) g/dL - Re-Assessments/Exams Free Text/Narrative Re-Assessment/Exam: 10/14/19 01:51 See lab Pt stable in ER Departure - Departure Time of Disposition: 02:00 Disposition: Home, Self-Care 01 Clinical Impression: Atypical chest pain Referrals: Kirill Mcdowell PA [Primary Care Provider] - Additional Instructions: Follow up in clinic Sepsis Event Note (ED) - Evaluation Sepsis Screening Result: No Definite Risk - Focused Exam Vital Signs: Vital Signs Temp Pulse Resp BP Pulse Ox 10/14/19 01:39 59 L 20 121/80 95 10/14/19 01:25 58 L 20 130/79 95 10/14/19 01:05 67 13 137/89 96 10/14/19 00:49 97.4 F 69 18 139/85 97 - My Orders Last 24 Hours: My Active Orders 10/14/19 01:01 EKG 12 Lead [EK] Stat 10/14/19 01:02 EKG Documentation Completion [RC] ASDIRECTED - Assessment/Plan Last 24 Hours: My Active Orders 10/14/19 01:01 EKG 12 Lead [EK] Stat 10/14/19 01:02 EKG Documentation Completion [RC] ASDIRECTED
== END 2019-10-14 02:02 | disposition home or self-care (01) ==
LOC: LL.ED 00:48
DX: R07.89 Other chest pain (principal)
CPT/HCPCS: 36415; 80053; 84484; 85025; 93005; 99285-25

== ENCOUNTER 2019-12-10 18:50 | Emergency (ER) | payer BC ==
[2019-12-10 19:12] VITALS: BP 120/79; PULSE 99
--- NOTE | 2019-12-10 19:29 | EDM.PDOC ---
ED HPI GENERAL MEDICAL PROBLEM - General Chief Complaint: General Stated Complaint: fall, right hand/wrist pain and left back pain Time Seen by Provider: 12/10/19 19:06 Source of Information: Reports: Patient History Limitations: Reports: No Limitations - History of Present Illness INITIAL COMMENTS - FREE TEXT/NARRATIVE: He is seen for evaluation of injury to his right wrist/hand. He slipped on a wet boat ramp, landing on the right arm. He is not sure of the exact position. He reports pain in the ulnar aspect of the wrist and hand. There is some constant aching pain. Increased pain with movement of the wrist and with grasping, but he does have good movement of his fingers. Injury was this afternoon. No numbness or tingling in the fingers. He has had a previous f racture to that wrist. He has had some ongoing problems with his lower back and that is a little more sore, but he is not concerned about that. He denies any other acute injury. He did not hit his head. No chest pain or tightness. No shortness of breath. No fever or chills. No recent illness. right hand/wrist Pain Score (Numeric/FACES): 6 left back Pain Score (Numeric/FACES): 6 - Related Data Allergies Allergy/AdvReac Type Severity Reaction Status Date / Time No Known Allergies Allergy Verified 12/10/19 18:52 Home Meds: Home Meds diphenhydrAMINE [Benadryl] 2 cap PO Q4HR PRN 05/29/19 [History] Albuterol [Ventolin HFA] 1 puff INH Q4H PRN 12/10/19 [History] Cyclobenzaprine [Flexeril] 10 mg PO ASDIRECTED PRN 12/10/19 [History] Past Medical History HEENT History: Reports: Impaired Vision, Other (See Below) Other HEENT History: seasonal allergies. wears glasses Cardiovascular History: Reports: Other (See Below) Other Cardiovascular History: Cardiac stress test 2014 Other Musculoskeletal History: right wrist surgery Social & Family History - Caffeine Use Caffeine Use: Reports: None - Living Situation & Occupation Living situation: Reports: Single, Alone Occupation: Employed ED ROS GENERAL - Review of Systems Review Of Systems: See Below Constitutional: Denies: Fever, Chills HEENT: Reports: No Symptoms Respiratory: Denies: Shortness of Breath, Cough Cardiovascular: Denies: Chest Pain, Palpitations Endocrine: Denies: Fatigue GI/Abdominal: Denies: Abdominal Pain, Nausea, Vomiting : Denies: Dysuria, Frequency, Urgency Musculoskeletal: Reports: Joint Pain Skin: Reports: No Symptoms Neurological: Denies: Confusion, Dizziness, Headache, Numbness, Paresthesia Psychiatric: Reports: No Symptoms Hematologic/Lymphatic: Reports: No Symptoms Immunologic: Reports: No Symptoms ED EXAM, GENERAL - Physical Exam Exam: See Below Free Text/Narrative:: Right wrist: Mild diffuse swelling. No deformity or discoloration. Sharp tenderness over the dorsal ulnar aspect distal to the ulnar styloid. Mild tenderness in the midline dorsal wrist. No volar tenderness. No palpable defect. Decreased range of motion with pain in all extremes, especially ulnar deviation. Full pronation and supination with pain in the extremes. Right hand: Mild diffuse swelling in the dorsal aspect. No discoloration. No significant tenderness over the metacarpals or fingers. Full range of motion in the fingers. 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 Right shoulder, forearm and elbow are all without swelling, deformity, tenderness or limitations of motion. Left shoulder, elbow, forearm, wrist and hand are all without swelling, deformity, tenderness or limitations of motion. Exam Limited By: No Limitations General Appearance: Alert, WD/WN Course - Vital Signs Text/Narrative:: He is placed in a short arm Ortho-Glass splint. Given routine splint instructions. Last Recorded V/S: Last Vital Signs Temp 36.6 C 12/10/19 18:55 Pulse 99 12/10/19 18:55 Resp 18 12/10/19 18:55 BP 120/79 12/10/19 18:55 Pulse Ox 100 12/10/19 18:55 - Orders/Labs/Meds Orders: Active Orders 24 hr Category Date Time Status Wrist Comp Min 3V Rt [CR] Stat Exams 12/10/19 19:12 Ordered - Radiology Interpretation Free Text/Narrative:: 3 views of the right wrist: Findings: Previous ORIF distal radius fracture. Small avulsion type fracture noted on the dorsal aspect on the lateral view only. This is likely from the triquetrium. No other fractures noted. Impression: Avulsion fracture dorsal wrist, likely triquetrium. Departure - Departure Time of Disposition: 19:41 Disposition: Home, Self-Care 01 Condition: Good Clinical Impression: Traumatic closed fracture of triquetral bone of right wrist with minimal displacement - Discharge Information *PRESCRIPTION DRUG MONITORING PROGRAM REVIEWED*: No *COPY OF PRESCRIPTION DRUG MONITORING REPORT IN PATIENT DONA: No Instructions: Cast or Splint Care, Adult, [id number], Wrist Fracture Treated With Immobilization, [id number] Referrals: Kirill Mcdowell PA [Primary Care Provider] - Additional Instructions: Discussed findings and treatment options. Is placed in a short arm Ortho-Glass splint. Given routine care instructions. Ice the wrist for 15 minutes 3-4 times daily. Elevate the wrist when possible. Recommended frequent movement of the fingers. Tylenol and/or Advil as needed for pain. He is placed on work restrictions with limited use of the right hand as tolerated by pain for 2 weeks. Follow-up with Ortho or primary physician next week. Sepsis Event Note (ED) - Evaluation Sepsis Screening Result: No Definite Risk - Focused Exam Vital Signs: Vital Signs Temp Pulse Resp BP Pulse Ox 12/10/19 18:55 36.6 C 99 18 120/79 100 - My Orders Last 24 Hours: My Active Orders 12/10/19 19:12 Wrist Comp Min 3V Rt [CR] Stat - Assessment/Plan Last 24 Hours: My Active Orders 12/10/19 19:12 Wrist Comp Min 3V Rt [CR] Stat
== END 2019-12-10 19:57 | disposition home or self-care (01) ==
LOC: LL.ED 18:50
DX: S62.111A Displaced fracture of triquetrum [cuneiform] bone, right wrist, initial encounter for closed fracture (principal); W01.0XXA Fall on same level from slipping, tripping and stumbling without subsequent striking against object, initial encounter; Y92.89 Other specified places as the place of occurrence of the external cause
CPT/HCPCS: 29125; 73110-RT; 99283-25